=== PATIENT | female | born 1955 | race Caucasian/White ===

== ENCOUNTER → 2016-09-28 | Outpatient (CLI) | payer BC ==
[~2016-09-28] MED LIST: ACET-2321 PO; ELTR25TA PO; HYDR25TA PO; LISI-625 PO; SIMV10TA67 PO; SPIR50TA PO
--- NOTE | 2016-09-28 09:45 | DI ---
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 Findings: The spleen is enlarged measuring 15.4 cm in maximal length. No focal splenic lesion or mass. Impression: Splenomegaly. .
== END ==
LOC: IMA 08:04
PROVIDERS: ATTEND Internal Medicine Medical Oncology
DX: D69.3 Immune thrombocytopenic purpura (principal); R16.1 Splenomegaly, not elsewhere classified